=== PATIENT | female | born 1975 | race Asian ===

== ENCOUNTER 2017-08-08 06:15 | Emergency (ER) | payer SELFPAY ==
[~2017-08-08] VITALS: Ht 154.9 cm; Wt 72.6 kg
[2017-08-08 06:30] VITALS: BP 142/101
[2017-08-08] MEDS ORDERED: Solu-MEDROL 125mg Inj IVP ONE (06:30)
[2017-08-08] MEDS ORDERED: Albuterol ud Inhalation HHN ONE ×2 (06:30→08:30)
[2017-08-08] MEDS ORDERED: Ipratropium 0.02% Inh Soln 2.5ml UD HHN ONE (06:30)
--- NOTE | 2017-08-08 06:43 | Emergency Room Report ---
History of Present Illness General Chief Complaint: Dyspnea/Respdistress Source: Patient, EMS Present Illness HPI Patient presents with severe dyspnea. She has a history of asthma. She has machine at home but doesn't have medication. She's been using Ventolin but it hasn't been helping. She has a productive cough with some yellow sputum. She' s complaining about some pleuritic chest pain that's 7/10. This is one of her worst attacks. She remembers taking a Medrol Dosepak several years ago. She never been intubated. Initial O2 sat was 89-90% according to paramedics. She was about to be treated with CPAP in the field but she improved with albuterol. She denies any nausea vomiting diarrhea. There's no dysuria. Her last period was July 24 and normal for her. She denies any other medical problems. She is not around any smokers. Allergies: Coded Allergies: No Known Allergies (Unverified , 08/08/17) Patient History Past Medical History: see triage record Social History: Denies: smoking, alcohol use, drug use Last Menstrual Period: 2016 Now: No Reviewed Nursing Documentation: PMH: Agreed, PSxH: Agreed Nursing Documentation-PMH Past Medical History: No History, Except For Hx Hypertension: Yes Hx Asthma: Yes Review of Systems All Other Systems: negative except mentioned in HPI Physical Exam Vital Signs Date Time Temp Pulse Resp B/P (MAP) Pulse Ox O2 Delivery O2 Flow Rate FiO2 08/08/17 06:18 98.2 105 22 142/101 97 Simple Mask Sp02 EP Interpretation: reviewed, normal General Appearance: well appearing, GCS 15, mild distress Head: normocephalic Eyes: bilateral eye normal inspection, bilateral eye PERRL ENT: moist mucus membranes Neck: supple Respiratory: wheezing, expiration - Right greater than left Cardiovascular #1: no edema, tachycardia Cardiovascular #2: 2+ radial (R) Gastrointestinal: normal inspection, normal bowel sounds, non tender, no mass, non-distended Musculoskeletal: back normal, gait/station normal, normal range of motion, no calf tenderness Neurologic: alert, oriented x3, grossly normal Psychiatric: mood/affect normal Skin: normal inspection, warm/dry Medical Decision Making Diagnostic Impression: Primary Impression: Asthma exacerbation Qualified Codes: J45.41 - Moderate persistent asthma with (acute) exacerbation Additional Impressions: Eosinophilia Hypomagnesemia ER Course The patient with a history of asthma presents with severe dyspnea. Differential includes asthma, pneumonia, bronchitis amongst others. She's improving with breathing treatments. She's had steroids in the past and will be receiving a dose of Cipro Medrol. Also breathing treatments. At this point she is starting to be intubated. Consideration for giving epinephrine. She was evaluated with EKG, chest x-ray and labs. (Orders initially entered by Dr. Evangelista. Full evaluation by me.) 7:05 - Improved with HR 107, sats 98%, still with wheezes R. Decision to admit patient as one of most severe attacks. CXR no infiltrate. WBC normal with eosinophilia. Magnesium initially low. Repeat albuterol. Exercised patient after repeat albuterol. Clear. She wants to go. Two factors in favor of improvement: 1) magnesium replacement and 2) eosinophilia with steroid treatment. With productive phlegm, antibiotics indicated (also requested by patient). Patient stable for outpatient observation and treatment. Laboratory Tests Test 08/08/17 06:25 08/08/17 07:15 White Blood Count 10.8 K/UL (4.8-10.8) Red Blood Count 4.23 M/UL (4.20-5.40) Hemoglobin 13.6 G/DL (12.0-16.0) Hematocrit 42.3 % (37.0-47.0) Mean Corpuscular Volume 100 FL (80-99) H Mean Corpuscular Hemoglobin 32.1 PG (27.0-31.0) H Mean Corpuscular Hemoglobin Concent 32.1 G/DL (32.0-36.0) Red Cell Distribution Width 12.6 % (11.6-14.8) Platelet Count 288 K/UL (150-450) Mean Platelet Volume 5.4 FL (6.5-10.1) L Neutrophils (%) (Auto) 46.9 % (45.0-75.0) Lymphocytes (%) (Auto) 42.1 % (20.0-45.0) Monocytes (%) (Auto) 5.6 % (1.0-10.0) Eosinophils (%) (Auto) 4.2 % (0.0-3.0) H Basophils (%) (Auto) 1.2 % (0.0-2.0) Sodium Level 139 MMOL/L (136-145) Potassium Level 3.6 MMOL/L (3.5-5.1) Chloride Level 105 MMOL/L (98-107) Carbon Dioxide Level 24 MMOL/L (21-32) Anion Gap 10 mmol/L (5-15) Blood Urea Nitrogen 12 mg/dL (7-18) Creatinine 0.7 MG/DL (0.55-1.30) Estimate Glomerular Filtration Rate > 60 mL/min (>60) Glucose Level 132 MG/DL (74-106) H Calcium Level 8.5 MG/DL (8.5-10.1) Magnesium Level 1.7 MG/DL (1.8-2.4) L Total Bilirubin 0.4 MG/DL (0.2-1.0) Aspartate Amino Transferase (AST) 11 U/L (15-37) L Alanine Aminotransferase (ALT) 19 U/L (12-78) Alkaline Phosphatase 43 U/L (46-116) L Total Creatine Kinase 245 U/L (26-308) Troponin I 0.000 ng/mL (0.000-0.056) Pro-B-Type Natriuretic Peptide 42 pg/mL (0-125) Total Protein 7.2 G/DL (6.4-8.2) Albumin 3.6 G/DL (3.4-5.0) Globulin 3.6 g/dL Albumin/Globulin Ratio 1.0 (1.0-2.7) Urine Color Pale yellow Urine Appearance Clear Urine pH 5 (4.5-8.0) Urine Specific Mineral 1.015 (1.005-1.035) Urine Protein 1+ (NEGATIVE) H Urine Glucose (UA) Negative (NEGATIVE) Urine Ketones Negative (NEGATIVE) Urine Occult Blood Negative (NEGATIVE) Urine Nitrite Negative (NEGATIVE) Urine Bilirubin Negative (NEGATIVE) Urine Urobilinogen Normal MG/DL (0.0-1.0) Urine Leukocyte Esterase Negative (NEGATIVE) Urine RBC 0-2 /HPF (0 - 2) Urine WBC 0-2 /HPF (0 - 2) Urine Squamous Epithelial Cells Moderate /LPF (NONE/OCC) H Urine Bacteria Occasional /HPF (NONE) Urine HCG, Qualitative Negative EKG Diagnostic Results Rate: tachycardiac ST Segments: no acute changes Rhythm Strip Diag. Results EP Interpretation: yes Rhythm: no PVC's, no ectopy, other - ST Chest X-Ray Diagnostic Results Chest X-Ray Diagnostic Results : Chest X-Ray Ordered: Yes # of Views/Limited/Complete: 1 View Indication: Shortness of Breath EP Interpretation: Yes Interpretation: no consolidation, no effusion, no pneumothorax, no acute cardiopulmonary disease Impression: No acute disease Electronically Signed by: Electronically signed by Andre Boyer MD Last Vital Signs Date Time Temp Pulse Resp B/P (MAP) Pulse Ox O2 Delivery O2 Flow Rate FiO2 08/08/17 09:50 98.2 91 15 133/86 96 Room Air 96 Status: improved Disposition: HOME, SELF-CARE Condition: Improved Scripts Albuterol Sulfate* (ALBUTEROL SULFATE MDI*) 8.5 Gm Hfa.aer.ad 2 PUFF INH Q6H, #1 EA 0 Refills Prov: Andre Boyer M.D. 08/08/17 Multivitamin With Minerals (MULTIVITAMINS WITH MINERALS*) 1 Each Tablet 1 TAB ORAL DAILY, #30 TAB Prov: Andre Boyer M.D. 08/08/17 Prednisone* (PREDNISONE*) 20 Mg Tablet 40 MG ORAL DAILY, #10 TAB Prov: Andre Boyer M.D. 08/08/17 Azithromycin* (ZITHROMAX*) 250 Mg Tablet 250 MG ORAL as directed, #6 TAB 0 Refills Take two tables once daily for 1 day, then one tablet once daily for 4 days. Prov: Andre Boyer M.D. 08/08/17 Albuterol Sulfate* (ALBUTEROL SULFATE HHN*) 2.5 Mg/3 Ml Vial.neb 2.5 MG HHN Q4H Y for Shortness of Breath, #50 VIAL 1 Refill Prov: Andre Boyer M.D. 08/08/17 Referrals: NOT CHOSEN FRANCHESCA/,REFERRING (PCP) Andre Boyer M.D. Aug 08, 2017 06:43
[2017-08-08 06:49] LABS: BASOPHILS % (AUTO) 1.2 % (0.0-2.0); EOSINOPHILS % (AUTO) 4.2 % (0.0-3.0); LYMPHOCYTES % (AUTO) 42.1 % (20.0-45.0); MEAN CORPUSCULAR HEMOGLOBIN 32.1 PG (27.0-31.0); MEAN CORPUSCULAR HGB CONC 32.1 G/DL (32.0-36.0); MEAN CORPUSCULAR VOLUME 100 FL (80-99); MEAN PLATELET VOLUME 5.4 FL (6.5-10.1); MONOCYTES % (AUTO) 5.6 % (1.0-10.0); NEUTROPHILS % (AUTO) 46.9 % (45.0-75.0); PLATELET COUNT 288 K/UL (150-450); RED BLOOD COUNT 4.23 M/UL (4.20-5.40); RED CELL DISTRIBUTION WIDTH 12.6 % (11.6-14.8); WHITE BLOOD COUNT 10.8 K/UL (4.8-10.8)
[2017-08-08 07:14] LABS: ANION GAP 10 mmol/L (5-15); CALCIUM 8.5 MG/DL (8.5-10.1); CARBON DIOXIDE 24 MMOL/L (21-32); CHLORIDE 105 MMOL/L (98-107); CREATININE 0.7 MG/DL (0.55-1.30); GLOMERULAR FILTRATION RATE > 60 mL/min (>60); POTASSIUM 3.6 MMOL/L (3.5-5.1); SODIUM 139 MMOL/L (136-145)
[2017-08-08 07:25] LABS: ALANINE AMINOTRANSFERASE 19 U/L (12-78); ASPARTATE AMINO TRANSFERASE 11 U/L (15-37); TOTAL PROTEIN 7.2 G/DL (6.4-8.2)
[2017-08-08] MEDS ORDERED: VENTOLIN HFA18 GM INH (07:31)
[2017-08-08 07:33] VITALS: BP 139/88
[2017-08-08 07:35] LABS: APPEARANCE,URINE CLEAR; KETONES,URINE NEGATIVE (NEGATIVE); LEUKOCYTE ESTERASE ,URINE NEGATIVE (NEGATIVE); NITRITE,URINE NEGATIVE (NEGATIVE); PH,URINE 5 (4.5-8.0); PROTEIN,URINE 1+ (NEGATIVE); UROBILINOGEN,URINE NORMAL MG/DL (0.0-1.0)
[2017-08-08 08:05] LABS: BACTERIA,URINE OCCASIONAL /HPF; RBC,URINE 0-2 /HPF (0 - 2); SQUAMOUS EPITHELIAL CELL,UR MODERATE /LPF (NONE/OCC); WBC,URINE 0-2 /HPF (0 - 2)
--- NOTE | 2017-08-08 09:17 | Diagnostic Imaging Report ---
Indication: Shortness of breath Technique: XRAY CHEST 1 V Comparison: None Findings: The cardiomediastinal silhouette is within normal limits. There is no focal consolidation, pneumothorax or pleural effusion. Degenerative changes of the spine are noted. Impression: No acute cardiopulmonary disease.
[2017-08-08] MEDS ORDERED: ZITHROMAX250 MG ORAL (09:22)
[2017-08-08] MEDS ORDERED: ALBUTEROL SULF8.5 GM INH (09:22)
[2017-08-08] MEDS ORDERED: PREDNISONE20 MG ORAL (09:22)
[2017-08-08] MEDS ORDERED: MULTIVITAMINS1 EAC8 ORAL (09:22)
[2017-08-08] MEDS ORDERED: ALBUTEROL2.5 MG/3 M HHN (09:22)
[2017-08-08 09:49] VITALS: BP 133/86
[2017-08-08 09:50] VITALS: BP 133/86
--- NOTE | 2017-08-13 11:04 | Cardiology Report ---
APPROVED REPORT EKG Measurement Heart [id number] Sinus tachycardia Otherwise normal ECG
== END 2017-08-08 09:55 | disposition home or self-care (01) ==
LOC: EDBD 06:15 → EMR 06:26 → EDBEDREQ 07:21 → CANBEDREQ 09:16 → EMR 09:55
DX: J45.41 Moderate persistent asthma with (acute) exacerbation (principal); D72.1 Eosinophilia; E83.42 Hypomagnesemia; I10 Essential (primary) hypertension
CPT/HCPCS: 36415; 71010; 80053; 81003; 81025; 82550; 83735; 83880; 84484; 85025; 93005; 94640; 94664; 96374; 96375; 99284; J2930